=== PATIENT | female | born 1950 | race Two or more races ===

== ENCOUNTER 2020-09-02 09:32 | Emergency (ER) | payer OTHER ==
[2020-09-02 10:03] VITALS: BMI 28.8
[2020-09-02] MEDS ORDERED: LACTATED RINGERS SOLUTION 1000 ML INFUS.BAG IV ONE (11:25)
[2020-09-02 11:30] LABS: VENOUS BASE EXCESS 2.1 mmol/L (-2-2); VENOUS O2 SATURATION 70.3 % (70-80); VENOUS PCO2 48.5 mmHg (38-52); VENOUS PH 7.38 (7.310-7.410)
[2020-09-02 11:38] LABS: BASO % 0.7 % (0-2.0); EOS % 5.5 % (0-4.5); HEMATOCRIT 41.5 % (32.4-45.2); HEMOGLOBIN 13.9 GM/dL (10.7-15.3); LYMPH % 30.7 % (8-40); MCH 28.5 pg (25.7-33.7); MCHC 33.5 g/dl (32.0-36.0); MEAN CELL VOLUME 85.1 fl (80-96); MEAN PLT VOLUME 10.6 fl (7.5-11.1); MONO % 4.5 % (3.8-10.2); NEUT % 58.6 % (42.8-82.8); PLATELET COUNT 221 K/MM3 (134-434); RBC 4.87 M/mm3 (3.60-5.2); RDW 14.6 % (11.6-15.6); WHITE BLOOD COUNT 9.8 K/mm3 (4.0-10.0)
[2020-09-02 11:57] LABS: ALBUMIN 3.8 g/dl (3.4-5.0); CALCIUM 9.7 mg/dL (8.5-10.1)
[2020-09-02 11:58] LABS: BLOOD UREA NITROGEN 11.6 mg/dL (7-18)
[2020-09-02 12:01] LABS: BILIRUBIN,TOTAL 0.6 mg/dL (0.2-1); CREATININE 0.7 mg/dL (0.55-1.3)
[2020-09-02 12:02] LABS: TOT PROT 7.5 g/dl (6.4-8.2)
[2020-09-02 12:09] LABS: MAGNESIUM 1.8 mg/dL (1.8-2.4)
[2020-09-02 13:23] VITALS: BP 147/75; PULSE 50; TEMP 97
== END 2020-09-02 13:47 | disposition home or self-care (01) ==
LOC: JER 09:32
DX: R73.9 Hyperglycemia, unspecified (principal)
CPT/HCPCS: 36415; 80053; 82010; 82803; 82962; 83036; 83735; 84484; 85025; 93005; 93010; 99284-25; C9803; U0003; U0005

== ENCOUNTER 2022-09-25 03:51 | Day surgery (SDC) | payer OTHER ==
[2022-09-20 14:41] VITALS: BMI 29.9
[2022-09-25] MEDS ORDERED: PROPOFOL 20 ML ONE (10:04)
[2022-09-25] MEDS ORDERED: LIDOCAINE HCL/PF 2% SDV 5ML VIAL ONE (10:04)
[2022-09-25] MEDS ORDERED: MIDAZOLAM HCL 2 MG/2 ML SINGLE DOSE VIAL ONE (10:04)
[2022-09-25] MEDS ORDERED: ONDANSETRON 4 MG/2 ML VIAL ONE (11:32)
[2022-09-25] MEDS ORDERED: DEXAMETHASONE SOD PHOSPHATE 4 MG/1 ML VIAL ONE (11:32)
[2022-09-25] MEDS ORDERED: LACTATED RINGERS SOLUTION 1,000 ML IV SCH (13:15)
[2022-09-25 13:36] VITALS: RESP 20
[2022-09-25 15:16] VITALS: BP 150/75; PULSE 68; TEMP 97.5
== END 2022-09-25 15:05 | disposition home or self-care (01) ==
LOC: JASU-SURG 03:51
PROVIDERS: ATTEND Obstetrics & Gynecology
PROC: 0U598ZZ Destruction of Uterus, Via Natural or Artificial Opening Endoscopic (ICD-10-PCS; principal; 2022-09-25 10:00)
DX: N95.0 Postmenopausal bleeding (principal); D25.0 Submucous leiomyoma of uterus; N84.0 Polyp of corpus uteri
CPT/HCPCS: 82962; 88305-TC; 94760